=== PATIENT | female | born 1975 | race African-American/Black ===

== ENCOUNTER 2024-02-20 19:09 | Emergency (ER) | payer OTHER ==
[~2024-02-20] VITALS: Ht 167.6 cm; Wt 75.9 kg
[~2024-02-20 19:09] MED LIST: NOCURR
[2024-02-20 20:19] LABS: BASOPHILS % (AUTO) 0.7 % (0.0-2.0); EOSINOPHILS % (AUTO) 1.2 % (1.0-6.0); HEMOGLOBIN 11.4 g/dL (12.0-16.0); LYMPHOCYTES # (AUTO) 1.3 K/uL (1.0-4.8); LYMPHOCYTES % (AUTO) 19.6 % (22.0-44.0); MEAN CORPUSCULAR HEMOGLOBIN 28.8 pg (26.0-34.0); MEAN CORPUSCULAR HGB CONC 32.7 G/dL (31.0-37.0); MEAN CORPUSCULAR VOLUME 88 fL (80-100); MONOCYTES # (AUTO) 0.5 K/uL (0.1-1.0); MONOCYTES % (AUTO) 7.7 % (2.0-9.0); NEUTROPHILS # (AUTO) 4.7 K/uL (1.8-7.7); NEUTROPHILS % (AUTO) 70.8 % (40.0-70.0); PLATELET COUNT (AUTO) 365 K/uL (150-450); RED BLOOD CELL COUNT(AUTO) 3.98 MIL/uL (4.00-5.20); RED CELL DISTRIBUTION WIDTH 16.5 % (11.5-14.5); WHITE BLOOD COUNT (AUTO) 6.7 K/uL (4.5-11.0)
[2024-02-20 20:28] LABS: ANION GAP 11 mmol/L (8-16); CALCIUM, TOTAL 8.7 mg/dL (8.8-10.5); CARBON DIOXIDE 26 mmol/L (22-29); CHLORIDE 100 mmol/L (98-107); CREATININE 0.92 mg/dL (0.60-1.30); GLOMERULAR FILTR. RATE CALC > 60 mL/min (>60); GLUCOSE,RANDOM 84 mg/dL (70-110); POTASSIUM 3.3 mmol/L (3.5-5.1); SODIUM SERUM 137 mmol/L (136-145); UREA NITROGEN, BLOOD 21 mg/dL (7-18)
[2024-02-20 20:34] LABS: ALANINE AMINOTRANSFERASE 16 U/L (12-78); ALBUMIN 2.8 g/dL (3.4-5.0); ALKALINE PHOSPHATASE 76 U/L (46-116); ASPARTATE AMINOTRANSFERASE 14 U/L (15-37); BILIRUBIN,TOTAL 0.3 mg/dL (0.1-1.0); LIPASE 20 U/L (16-77); TOTAL PROTEIN, SERUM 7.3 g/dL (6.4-8.2)
[2024-02-20] MEDS: HYDROmorphone HCL 2 MG/ML SYRINGE IVP ONE (21:18)
[2024-02-20] MEDS ORDERED: SODIUM CHLORIDE 0.9% 100 ML ONE (21:18)
[2024-02-20] MEDS: POTASSIUM CHLORIDE 20 MEQ ER TABLET PO ONE (21:18)
[2024-02-20] MEDS ORDERED: 0.9% SODIUM CHLORIDE 10 ML SYRINGE IVP ONE (21:18)
[2024-02-20] MEDS ORDERED: IOHEXOL 350 MG/ML 100 ML VIAL ONE (21:18)
[2024-02-20] MEDS ORDERED: AMOX-457 PO (22:18)
[2024-02-20 22:20] VITALS: BP 119/68; PULSE 89; RESP 16; TEMP 97.9
[2024-02-20] MEDS: AMOX TR/POT CLAV 875 MG/125 MG TABLET PO ONE (22:31)
== END 2024-02-20 22:43 | disposition home or self-care (01) ==
LOC: EMS 19:09
DX: K57.92 Diverticulitis of intestine, part unspecified, without perforation or abscess without bleeding (principal); K59.00 Constipation, unspecified; E87.6 Hypokalemia; F17.210 Nicotine dependence, cigarettes, uncomplicated; Z79.899 Other long term (current) drug therapy
CPT/HCPCS: 80048; 80076; 83690; 84702; 85025; 36415; 74177; 99285; 93005; 96374; Q9967; J1170; J7050; X7700

== ENCOUNTER 2025-04-09 17:32 | Inpatient (IN) | payer OTHER, MEDICAID ==
[~2025-04-09] VITALS: Ht 165.1 cm; Wt 89.6 kg
[~2025-04-09 17:32] MED LIST changes: +AMOX-457 PO
[2025-04-09 18:12] LABS: PLATELET COUNT (AUTO) 295 K/uL (150-450); RED BLOOD CELL COUNT(AUTO) 4.03 MIL/uL (4.00-5.20); RED CELL DISTRIBUTION WIDTH 18.0 % (11.5-14.5); WHITE BLOOD COUNT (AUTO) 5.4 K/uL (4.5-11.0)
[2025-04-09 18:21] LABS: CALCIUM, TOTAL 8.4 mg/dL (8.8-10.5); CREATININE 0.88 mg/dL (0.60-1.30); GLOMERULAR FILTR. RATE CALC > 60 mL/min (>60); GLUCOSE,RANDOM 150 mg/dL (70-110); SODIUM SERUM 138 mmol/L (136-145); UREA NITROGEN, BLOOD 21 mg/dL (7-18)
[2025-04-09 18:25] LABS: ASPARTATE AMINOTRANSFERASE 17 U/L (15-37); CREATINE KINASE, TOTAL ONLY 61 U/L (26-192); TOTAL PROTEIN, SERUM 6.2 g/dL (6.4-8.2)
[2025-04-09 18:30] LABS: TROPONIN I-HIGH SENSITIVITY 22 ng/L (<51)
[2025-04-09 18:37] LABS: ALCOHOL, BLOOD (SERUM) < 3 mg/dL (0-10)
[2025-04-09 19:59] LABS: COVID AG,FIA SOURCE NASAL SWAB
[2025-04-09] MEDS: POTASSIUM CHLORIDE 20 MEQ ER TABLET PO ONE (20:27)
[2025-04-09 20:55] LABS: SARS-COV2 (COVID) ANTIGEN,FIA Negative (Negative)
[2025-04-09 21:38] LABS: APPEARANCE,URINE HAZY (CLEAR); GLUCOSE, URINE (UA) TRACE mg/dL (NEGATIVE); LEUKOCYTE ESTERASE ,URINE LARGE (NEGATIVE); NITRATE,URINE NEGATIVE (NEGATIVE); OCCULT BLOOD,URINE NEGATIVE (NEGATIVE); PH,URINE DRUG SCREEN 6.0 (5.0-8.0); SPECIFIC GRAVITIY, URINE 1.039 (1.003-1.030)
[2025-04-09 21:42] LABS: ALCOHOL, URINE DRUG SCREEN NEGATIVE (NEGATIVE); AMPHET/METH SCREEN,URINE POSITIVE (NEGATIVE); BARBITURATE SCREEN, URINE NEGATIVE (NEGATIVE); CANNABINOID SCREEN,URINE NEGATIVE (NEGATIVE); COCAINE SCREEN,URINE NEGATIVE (NEGATIVE); METHADONE SCREEN, URINE NEGATIVE (NEGATIVE)
[2025-04-09 22:00] LABS: SQUAMOUS EPITHELIAL CELL,UR Many /LPF (None Seen)
[2025-04-09] MEDS: CEPHALEXIN MONOHYDRATE 500 MG CAPSULE PO ONE (22:31)
[2025-04-10 04:30] VITALS: O2SAT 96
[2025-04-10 06:16] VITALS: BP 126/88; PULSE 70; RESP 18; TEMP 97.2; O2SAT 99
[2025-04-10 08:09] VITALS: BP 118/65; PULSE 72; RESP 16; TEMP 97.2; O2SAT 98
[2025-04-10 09:35] LABS: PLATELET COUNT (AUTO) 277 K/uL (150-450); RED BLOOD CELL COUNT(AUTO) 3.97 MIL/uL (4.00-5.20); RED CELL DISTRIBUTION WIDTH 18.3 % (11.5-14.5); WHITE BLOOD COUNT (AUTO) 5.0 K/uL (4.5-11.0)
[2025-04-10] MEDS ORDERED: DOCUSATE SODIUM 100 MG CAPSULE PO PRN (10:15)
[2025-04-10] MEDS ORDERED: ONDANSETRON 4 MG TABLET PO PRN (10:15)
[2025-04-10] MEDS ORDERED: GuaiFENesin/D-METHORPHAN [SUGAR-FREE] 200-20MG/10 ML SYRUP UDCUP PO PRN (10:15)
[2025-04-10] MEDS ORDERED: PETROLATUM,WHITE 28 GM JELLY TP PRN (10:15)
[2025-04-10] MEDS ORDERED: ACETAMINOPHEN 325 MG TABLET PO PRN (10:15)
[2025-04-10] MEDS ORDERED: MAGNESIUM HYDROXIDE SUSPENSION 30 ML UDCUP PO PRN (10:15)
[2025-04-10 12:37] LABS: ASPARTATE AMINOTRANSFERASE 26 U/L (15-37); CALCIUM, TOTAL 8.4 mg/dL (8.8-10.5); CHOL/HDL RATIO 3.2 (3.9-5.7); CREATININE 0.64 mg/dL (0.60-1.30); GLOMERULAR FILTR. RATE CALC > 60 mL/min (>60); GLUCOSE,RANDOM 97 mg/dL (70-110); LDL CHOL (CALC.) 125 mg/dL (0-130); SODIUM SERUM 136 mmol/L (136-145); TOTAL PROTEIN, SERUM 6.2 g/dL (6.4-8.2); UREA NITROGEN, BLOOD 18 mg/dL (7-18)
[2025-04-10] MEDS ORDERED: HALO5TAB PO (16:11)
[2025-04-10 20:27] VITALS: BP 117/73; PULSE 70; RESP 17; TEMP 98; O2SAT 98
[2025-04-11 08:17] VITALS: BP 109/63; PULSE 75; RESP 16; TEMP 97.6; O2SAT 98
[2025-04-11 20:14] VITALS: BP 102/66; PULSE 68; RESP 16; TEMP 97.9; O2SAT 95
[2025-04-11] MEDS: LOPERAMIDE HCL 2 MG CAPSULE PO PRN (23:13)
[2025-04-11] MEDS: ZOLPIDEM TARTRATE 10 MG TABLET PO PRN (23:14)
[2025-04-12 13:39] VITALS: RESP 17
[2025-04-12 20:09] VITALS: BP 104/72; PULSE 74; RESP 17; TEMP 97.6; O2SAT 98
[2025-04-13 08:12] VITALS: RESP 16
[2025-04-13 20:26] VITALS: BP 106/65; PULSE 71; RESP 17; TEMP 97.6; O2SAT 98
[2025-04-13] MEDS: MIRTAZAPINE 15 MG TABLET PO SCH (21:18)
[2025-04-13] MEDS: NICOTINE 14 MG/24 HOUR PATCH TD PRN (21:19)
[2025-04-14 08:18] VITALS: BP 101/68; PULSE 83; RESP 16; TEMP 98.1; O2SAT 99
[2025-04-14 10:15] LABS: CHOL/HDL RATIO 4.0 (3.9-5.7); LDL CHOL (CALC.) 158.0 mg/dL (0-130)
[2025-04-14 20:38] VITALS: BP 109/68; PULSE 64; RESP 18; TEMP 97.8; O2SAT 97
[2025-04-15 08:13] VITALS: BP 112/65; PULSE 69; RESP 16; TEMP 97.6; O2SAT 98
[2025-04-15 20:26] VITALS: BP 114/75; PULSE 77; RESP 18; TEMP 97.8; O2SAT 100
[2025-04-16 06:38] VITALS: RESP 18
[2025-04-16 08:13] VITALS: RESP 16
[2025-04-16] MEDS: MAG HYDROX/ALUMINUM HYD/SIMETH ES 30 ML SUSPENSION UDCUP PO PRN (18:01)
[2025-04-16 20:31] VITALS: BP 109/76; PULSE 67; RESP 17; TEMP 98.4; O2SAT 99
[2025-04-17 08:09] VITALS: BP 111/65; PULSE 67; RESP 16; TEMP 98; O2SAT 100
[2025-04-17 20:15] VITALS: BP 115/68; PULSE 66; RESP 17; TEMP 98.2; O2SAT 99
[2025-04-18] MEDS: ALBUTEROL SULFATE HFA 90 MCG/PUFF 8 GM INHALER IH PRN (08:05)
[2025-04-18 08:14] VITALS: BP 110/84; PULSE 73; RESP 16; TEMP 97.2; O2SAT 97
[2025-04-18 20:00] VITALS: BP 118/87; PULSE 68; RESP 18; TEMP 97.8; O2SAT 99
[2025-04-18 21:37] VITALS: RESP 18
[2025-04-18] MEDS: IBUPROFEN 400 MG TABLET PO PRN (21:37)
[2025-04-19 08:17] VITALS: RESP 18; O2SAT 98
[2025-04-19 08:33] VITALS: BP 113/61; PULSE 80; RESP 17; TEMP 98.1; O2SAT 97
[2025-04-19 09:10] LABS: APPEARANCE,URINE CLEAR (CLEAR); GLUCOSE, URINE (UA) NEGATIVE (NEGATIVE); LEUKOCYTE ESTERASE ,URINE TRACE (NEGATIVE); NITRATE,URINE NEGATIVE (NEGATIVE); OCCULT BLOOD,URINE LARGE (NEGATIVE); PH,URINE DRUG SCREEN 6.5 (5.0-8.0); SPECIFIC GRAVITIY, URINE 1.010 (1.003-1.030)
[2025-04-19 09:14] LABS: ALCOHOL, URINE DRUG SCREEN NEGATIVE (NEGATIVE); AMPHET/METH SCREEN,URINE NEGATIVE (NEGATIVE); BARBITURATE SCREEN, URINE NEGATIVE (NEGATIVE); CANNABINOID SCREEN,URINE NEGATIVE (NEGATIVE); COCAINE SCREEN,URINE NEGATIVE (NEGATIVE); METHADONE SCREEN, URINE NEGATIVE (NEGATIVE)
[2025-04-19 09:17] VITALS: RESP 16; O2SAT 97
[2025-04-19 09:32] LABS: SQUAMOUS EPITHELIAL CELL,UR Few /LPF (None Seen)
[2025-04-19 20:09] VITALS: BP 128/61; PULSE 72; RESP 18; TEMP 98.2
[2025-04-20] MEDS: BENZOCAINE 10% 7 GM GEL TP PRN (08:19)
[2025-04-20 08:52] VITALS: BP 103/61; PULSE 73; RESP 18; TEMP 97.5; O2SAT 98
[2025-04-20] MEDS ORDERED: HALO5TAB23 PO ×2 (10:35→16:52)
[2025-04-20] MEDS ORDERED: BUSP5TAB20 PO ×3 (10:36→16:53)
[2025-04-20] MEDS ORDERED: MIRT-89 PO ×2 (10:41→16:52)
== END 2025-04-20 16:12 | disposition home or self-care (01) | DRG 885 ==
LOC: EMS 17:32 → B3A 04-10 02:51
PROVIDERS: ADMIT Psychiatry & Neurology Psychiatry; ATTEND Psychiatry & Neurology Psychiatry
PROC: GZHZZZZ Group Psychotherapy (ICD-10-PCS; principal; 2025-04-10)
PROC: GZ52ZZZ Individual Psychotherapy, Cognitive (ICD-10-PCS; 2025-04-14)
DX: F25.1 Schizoaffective disorder, depressive type (principal); T43.592A Poisoning by other antipsychotics and neuroleptics, intentional self-harm, initial encounter; N39.0 Urinary tract infection, site not specified; R45.851 Suicidal ideations; Z59.00 Homelessness unspecified; Z20.822 Contact with and (suspected) exposure to COVID-19; E78.5 Hyperlipidemia, unspecified; R73.9 Hyperglycemia, unspecified; F41.9 Anxiety disorder, unspecified; E87.6 Hypokalemia; D64.9 Anemia, unspecified; F15.10 Other stimulant abuse, uncomplicated; Z79.899 Other long term (current) drug therapy; Z87.891 Personal history of nicotine dependence; Z91.51 Personal history of suicidal behavior; Y92.89 Other specified places as the place of occurrence of the external cause
CPT/HCPCS: 80048; 80053; 80061; 80076; 80307; 81001; 82550; 83036; 83880; 84436; 84443; 84484; 84703; 85025; 87086; 93005; 99285; G0480; G0481; J3535

== ENCOUNTER 2025-05-03 13:46 | Inpatient (IN) | payer MEDICAID, OTHER ==
[~2025-05-03] VITALS: Ht 165.1 cm; Wt 90.7 kg
[~2025-05-03 13:46] MED LIST changes: -AMOX-457 PO; +BUSP5TAB20 PO; +MIRT-89 PO; -NOCURR
[2025-05-03 14:16] LABS: PLATELET COUNT (AUTO) 354 K/uL (150-450); RED BLOOD CELL COUNT(AUTO) 3.79 MIL/uL (4.00-5.20); RED CELL DISTRIBUTION WIDTH 19.0 % (11.5-14.5); WHITE BLOOD COUNT (AUTO) 7.2 K/uL (4.5-11.0)
[2025-05-03 14:23] LABS: CALCIUM, TOTAL 8.4 mg/dL (8.8-10.5); CREATININE 1.05 mg/dL (0.60-1.30); GLOMERULAR FILTR. RATE CALC > 60 mL/min (>60); GLUCOSE,RANDOM 105 mg/dL (70-110); SODIUM SERUM 138 mmol/L (136-145); UREA NITROGEN, BLOOD 19 mg/dL (7-18)
[2025-05-03 14:30] LABS: ALCOHOL, BLOOD (SERUM) 114 mg/dL (0-10)
[2025-05-03 14:32] LABS: TROPONIN I-HIGH SENSITIVITY 25 ng/L (<51)
[2025-05-03 14:55] LABS: COVID AG,FIA SOURCE NASAL SWAB
[2025-05-03 15:05] LABS: PH,URINE DRUG SCREEN 6.5 (5.0-8.0)
[2025-05-03 15:11] LABS: ALCOHOL, URINE DRUG SCREEN POSITIVE (NEGATIVE); AMPHET/METH SCREEN,URINE POSITIVE (NEGATIVE); BARBITURATE SCREEN, URINE NEGATIVE (NEGATIVE); CANNABINOID SCREEN,URINE NEGATIVE (NEGATIVE); COCAINE SCREEN,URINE NEGATIVE (NEGATIVE); METHADONE SCREEN, URINE NEGATIVE (NEGATIVE)
[2025-05-03 15:12] LABS: SARS-COV2 (COVID) ANTIGEN,FIA Negative (Negative)
[2025-05-03] MEDS ORDERED: ZOLPIDEM TARTRATE 10 MG TABLET PO PRN (15:15)
[2025-05-03 19:08] VITALS: O2SAT 95
[2025-05-03 21:12] VITALS: BP 122/81; PULSE 96; RESP 17; TEMP 98; O2SAT 96
[2025-05-04] MEDS ORDERED: NICOTINE POLACRILEX 2 MG LOZENGE PO PRN (06:15)
[2025-05-04] MEDS ORDERED: GuaiFENesin/D-METHORPHAN [SUGAR-FREE] 200-20MG/10 ML SYRUP UDCUP PO PRN (07:00)
[2025-05-04] MEDS ORDERED: NICOTINE 14 MG/24 HOUR PATCH TD PRN (07:00)
[2025-05-04] MEDS ORDERED: ACETAMINOPHEN 325 MG TABLET PO PRN (07:00)
[2025-05-04] MEDS ORDERED: ALBUTEROL SULFATE HFA 90 MCG/PUFF 8 GM INHALER IH PRN (07:00)
[2025-05-04] MEDS ORDERED: DOCUSATE SODIUM 100 MG CAPSULE PO PRN (07:00)
[2025-05-04] MEDS ORDERED: PETROLATUM,WHITE 28 GM JELLY TP PRN (07:00)
[2025-05-04] MEDS ORDERED: MAGNESIUM HYDROXIDE SUSPENSION 30 ML UDCUP PO PRN (07:00)
[2025-05-04] MEDS ORDERED: LOPERAMIDE HCL 2 MG CAPSULE PO PRN (07:00)
[2025-05-04] MEDS ORDERED: IBUPROFEN 400 MG TABLET PO PRN (07:00)
[2025-05-04] MEDS ORDERED: ONDANSETRON 4 MG TABLET PO PRN (07:00)
[2025-05-04] MEDS ORDERED: MAG HYDROX/ALUMINUM HYD/SIMETH ES 30 ML SUSPENSION UDCUP PO PRN (07:00)
[2025-05-04 08:05] VITALS: BP 129/78; PULSE 87; RESP 16; TEMP 97.9; O2SAT 96
[2025-05-04 08:39] LABS: CHOL/HDL RATIO 3.0 (3.9-5.7); LDL CHOL (CALC.) 142.0 mg/dL (0-130)
[2025-05-04 20:24] VITALS: RESP 17
[2025-05-05 09:08] LABS: CHOL/HDL RATIO 3.2 (3.9-5.7); LDL CHOL (CALC.) 72.0 mg/dL (0-130)
[2025-05-05 09:20] VITALS: BP 98/56; PULSE 92; RESP 16; TEMP 97.8; O2SAT 100
[2025-05-05 20:10] VITALS: BP 138/82; PULSE 97; RESP 17; TEMP 97.9; O2SAT 98
[2025-05-06 08:26] VITALS: BP 109/74; PULSE 100; RESP 16; TEMP 97.9; O2SAT 98
[2025-05-06 20:00] VITALS: BP 112/75; PULSE 91; RESP 17; TEMP 98; O2SAT 98
[2025-05-07 08:13] VITALS: RESP 16
[2025-05-07 08:14] VITALS: BP 107/69; PULSE 88; RESP 16; TEMP 97.9; O2SAT 100
[2025-05-07 20:06] VITALS: BP 120/86; PULSE 91; RESP 17; TEMP 97.9; O2SAT 97
[2025-05-08 08:09] VITALS: BP 131/85; PULSE 92; RESP 17; TEMP 97.9; O2SAT 99
[2025-05-08 20:15] VITALS: BP 105/75; PULSE 63; RESP 17; TEMP 98.4; O2SAT 97
[2025-05-09 08:21] VITALS: BP 103/65; PULSE 96; RESP 16; TEMP 97.9; O2SAT 99
[2025-05-09 20:03] VITALS: BP 120/86; PULSE 75; RESP 18; TEMP 97.3; O2SAT 100
[2025-05-10 08:16] VITALS: BP 113/78; PULSE 94; RESP 16; TEMP 97.6; O2SAT 98
[2025-05-10 08:58] LABS: APPEARANCE,URINE TURBID (CLEAR); GLUCOSE, URINE (UA) NEGATIVE (NEGATIVE); LEUKOCYTE ESTERASE ,URINE LARGE (NEGATIVE); NITRATE,URINE NEGATIVE (NEGATIVE); OCCULT BLOOD,URINE LARGE (NEGATIVE); PH,URINE DRUG SCREEN 6.5 (5.0-8.0); SPECIFIC GRAVITIY, URINE 1.023 (1.003-1.030)
[2025-05-10 09:05] LABS: ALCOHOL, URINE DRUG SCREEN NEGATIVE (NEGATIVE); AMPHET/METH SCREEN,URINE POSITIVE (NEGATIVE); BARBITURATE SCREEN, URINE NEGATIVE (NEGATIVE); CANNABINOID SCREEN,URINE NEGATIVE (NEGATIVE); COCAINE SCREEN,URINE NEGATIVE (NEGATIVE); METHADONE SCREEN, URINE NEGATIVE (NEGATIVE)
[2025-05-10 09:24] LABS: SQUAMOUS EPITHELIAL CELL,UR Many /LPF (None Seen)
[2025-05-10] MEDS: CEPHALEXIN MONOHYDRATE 500 MG CAPSULE PO SCH (12:15)
[2025-05-10 20:47] VITALS: BP 109/62; PULSE 97; RESP 18; TEMP 98.4; O2SAT 99
[2025-05-10 20:52] VITALS: BP 115/91; PULSE 97; RESP 18; TEMP 98.4; O2SAT 96
[2025-05-11 08:09] VITALS: BP 127/76; PULSE 93; RESP 16; TEMP 98.3; O2SAT 100
[2025-05-11 09:12] VITALS: RESP 16
[2025-05-11 21:15] VITALS: BP 118/80; PULSE 100; RESP 17; TEMP 97.7; O2SAT 98
[2025-05-12 08:37] VITALS: BP 120/71; PULSE 88; RESP 18; TEMP 97.1
[2025-05-26] MEDS ORDERED: RisperiDONE ER SUSPENSION 250 MG/0.7 ML PRE-FILLED SYRINGE SQ SCH (09:00)
== END 2025-05-12 19:47 | disposition home or self-care (01) | DRG 761 ==
LOC: EMS 13:46 → B3A 17:47 → CMPBEDREQ 05-06 21:35
PROVIDERS: ADMIT Psychiatry & Neurology Psychiatry; ATTEND Psychiatry & Neurology Psychiatry
PROC: GZHZZZZ Group Psychotherapy (ICD-10-PCS; principal; 2025-05-04)
PROC: GZ52ZZZ Individual Psychotherapy, Cognitive (ICD-10-PCS; 2025-05-12)
DX: F25.1 Schizoaffective disorder, depressive type (principal); E83.51 Hypocalcemia; D64.9 Anemia, unspecified; E66.9 Obesity, unspecified; E78.5 Hyperlipidemia, unspecified; F10.10 Alcohol abuse, uncomplicated; F15.10 Other stimulant abuse, uncomplicated; Z68.33 Body mass index [BMI] 33.0-33.9, adult; F41.9 Anxiety disorder, unspecified; Z20.822 Contact with and (suspected) exposure to COVID-19; Y90.5 Blood alcohol level of 100-119 mg/100 ml; T43.592A Poisoning by other antipsychotics and neuroleptics, intentional self-harm, initial encounter; F19.10 Other psychoactive substance abuse, uncomplicated; Z79.899 Other long term (current) drug therapy; Z59.02 Unsheltered homelessness; Z87.59 Personal history of other complications of pregnancy, childbirth and the puerperium; Y92.89 Other specified places as the place of occurrence of the external cause; Z87.891 Personal history of nicotine dependence; Z91.148 Patient's other noncompliance with medication regimen for other reason; Z91.51 Personal history of suicidal behavior; Z91.85 Personal history of military service
CPT/HCPCS: 80048; 80061; 80307; 81001; 83036; 83735; 84443; 84484; 85025; 87086; 93005; 99285; G0480; G0481; Q0162